=== PATIENT | female | born 1990 | race Caucasian/White ===

== ENCOUNTER 2023-01-03 13:47 | Emergency (ER) | payer MEDICAID, SELFPAY ==
--- NOTE | ~2023-01-03 | CT_ITS ---
EXAMINATION: CT ABDOMEN AND PELVIS WITHOUT CONTRAST CLINICAL INFORMATION: Abdominal pain COMPARISON: None available. TECHNIQUE: Multidetector volumetric imaging was performed from the superior aspect of the liver through the pubic symphysis. Sagittal and coronal reformatted images were obtained on the technologist's workstation. This CT examination was performed using dose optimization techniques as appropriate, variously including the following: *Automated exposure control *Adjustment of mA and/or kV according to patient size (this includes techniques or standardized protocols for targeted exams where dose is matched to indication/reason for exam; i.e. extremities or head) *Use of iterative reconstruction technique DLP: 342 mGy-cm FINDINGS: LUNG BASES: 6 mm lobulated nodule left lower lobe best seen in the coronal section. Please see rodriguez images. LIVER, GALLBLADDER, AND BILIARY TREE: The liver is normal in size, shape, and attenuation. No focal hepatic lesion or biliary ductal dilatation is present. The gallbladder is unremarkable with no evidence of radiopaque gallstones, gallbladder wall thickening, or obvious pericholecystic inflammatory changes. PANCREAS: Unremarkable. SPLEEN: Unremarkable. ADRENAL GLANDS: Unremarkable. KIDNEYS AND URETERS: The kidneys are normal in size, shape, and attenuation. No hydronephrosis, hydroureter, or calculi seen. No perinephric stranding. BLADDER: Unremarkable. GASTROINTESTINAL TRACT: Moderate stool thickening the right colon. No obstruction or fecal impaction. The appendix is not definitively identified but no definite inflammatory changes are noted cecal base. There are high density punctate foci within the right lower quadrant consistent sequela previous inflammation. No small bowel pathology. ABDOMINAL WALL: No significant hernia is appreciated. LYMPH NODES: Reactive appearing inguinal lymph nodes bilaterally. VASCULAR: Unremarkable. PELVIC VISCERA: IUD in place without migration. OSSEOUS STRUCTURES: Mild compression fractures T12 and L2 and 3 likely chronic. ORIF changes left femur noted. CT/CT abdomen pelvis wo IV con IMPRESSION: 1. No obstruction or fecal impaction. Appendix not definitively identified but no inflammatory changes noted. Incidental 6 mm left lower lobe pulmonary nodule. According to the UPDATED 2017 Fleischner Society recommendations, the advised follow-up imaging for a single 6-8 mm solid nodule is: LOW RISK PATIENT: CT at 6-12 months, then consider CT at 18-24 months. HIGH RISK PATIENT: CT at 6-12 months, then at 18-24 months. Fleischner guidelines were followed.
--- NOTE | ~2023-01-03 | XR_ITS ---
EXAMINATION: XR LUMBOSACRAL SPINE CLINICAL INFORMATION: Pain. Injury. COMPARISON: None available. TECHNIQUE: Three views of the lumbosacral spine. FINDINGS: Slight compression deformities of the superior endplate of T12, L2 and L3 vertebral bodies. These are age-indeterminate deformities. No fracture line is apparent. No retropulsed fragments. Vertebrae have normal alignment. No spondylolysis. Sacroiliac joints are normal. Lumbar disc heights are normal. Facet joints are normal. IUD in the pelvis. Large volume of stool in visualized colonic bowel loops. No abnormal bowel dilatation. XR/XR lumbar spine 2-3V IMPRESSION: Slight compression deformities of the superior endplate of T12, L2 and L3 vertebral bodies. These are age-indeterminate.
--- NOTE | ~2023-01-03 | XR_ITS ---
EXAMINATION: XR CHEST CLINICAL INFORMATION: Fall. COMPARISON: None available. TECHNIQUE: 2 views of the chest were obtained. FINDINGS: Mild wedge compression deformity of the superior endplate of T12 indeterminate for age. Lungs are normally aerated. No pleural effusion and no pneumothorax. Heart size is normal. The cardiac and mediastinal contours are normal. No pulmonary vascular congestion. XR/XR chest 2V IMPRESSION: 1. No acute abnormality of the chest. 2. Mild wedge compression deformity of the superior endplate of T12 indeterminate for age.
[2023-01-03 13:55] VITALS: BP 130/70; PULSE 86; O2SAT 98
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
[2023-01-03 13:58] VITALS: BP 121/73; PULSE 91; RESP 19; TEMP 36.6; O2SAT 99; BMI 19.5
[2023-01-03 14:23] LABS: Basophils Percent Auto 0.1 % (0-2); Hematocrit 40.8 % (37.0-47.0); Hemoglobin 13.9 g/dl (12.0-16.0); Imm Gran Abs Auto 0.17 X10*3/uL (0.00-0.03); Imm Gran Pct Auto 0.8 % (0.0-0.4); Lymphocytes Absolute Auto 0.7 X10*3/uL (1.2-4.9); Lymphocytes Percent Auto 3.3 % (20-40); MANUAL DIFF FLAG SCAN; Mean Corpuscular HGB Conc 34.1 g/dl (31.0-35.0); Mean Corpuscular Volume 88.1 fL (80.0-98.0); Mean Platelet Volume 11.5 fL (9.4-12.3); Monocytes Percent Auto 4.6 % (2-11); Neutrophils Percent Auto 91.2 % (45-73); Platelet Count 208 X10*3/uL (160-400); Red Blood Count 4.63 X10*6/uL (4.20-5.50); Red Cell Distribution Width 11.9 % (11.0-16.0); SCAN SMEAR FLAG 1; White Blood Count 20.9 X10*3/uL (4.8-10.8)
[2023-01-03 14:38] LABS: Alanine Aminotransferase 16 U/L (0-31); Albumin Level 4.6 g/dL (3.5-5.0); Alkaline Phosphatase 81 U/L (39-117); Anion Gap 15 (12-20); Aspartate Amino Transferase 31 U/L (5-31); Bilirubin Total 0.5 mg/dL (0.0-1.0); Blood Urea Nitrogen 10 mg/dL (9-16); Calcium 9.9 mg/dL (8.4-10.2); Carbon Dioxide 21 mmol/L (22-29); Chloride 104 mmol/L (96-108); Creatinine Clr Calc Pharmacy 101.8; Estimated Glomerular Filt Rate > 60; Glucose Random 106 mg/dL (60-115); Magnesium 1.9 mg/dL (1.6-2.6); Potassium 3.9 mmol/L (3.3-5.1); Sodium 136 mmol/L (135-145); Total Protein 8.5 g/dL (6.5-8.0)
[2023-01-03 14:51] LABS: SLIDE REVIEW VERIFIED
[2023-01-03] MEDS: 0.9 % Sodium Chloride 1,000 ML 999 ML IV (17:44)
[2023-01-03] MEDS: Morphine Sulfate 2 MG/ML CARTRIDGE IVPUSH (17:46)
[2023-01-03 17:47] LABS: Appearance Urine Clear; Color Urine Yellow; Glucose Urine UA Negative (Negative); Leukocyte Esterase Urine Negative (Negative); Nitrite Urine Negative (Negative); Urine Blood Negative (Negative); Urine Ketones Trace mg/dL (Negative); Urine Protein Trace mg/dL (Neg-Trace)
[2023-01-03 17:48] LABS: UPreg QC Valid YES; Urine Pregnancy NEGATIVE (NEGATIVE)
[2023-01-03 18:00] VITALS: BP 123/80; PULSE 54; RESP 18; O2SAT 100
[2023-01-03 21:12] LABS: C Reactive Protein 0.11 mg/dL (< or = 0.50)
== END 2023-01-03 20:38 | disposition home or self-care (01) ==
PROVIDERS: Nurse Practitioner Family; Physician Assistant Medical; Emergency Provider Internal Medicine
DX: M54.50 Low back pain, unspecified (principal); R10.84 Generalized abdominal pain; R11.2 Nausea with vomiting, unspecified; R10.2 Pelvic and perineal pain; Z79.899 Other long term (current) drug therapy
CPT/HCPCS: 36415; 71046; 72100; 74176; 80053; 81003; 81025; 83605; 83735; 85025; 86140; 96361; 96374; 99284; J2270